=== PATIENT | male | born 1955 | race Caucasian/White ===

== ENCOUNTER 2018-11-20 12:15 | Outpatient (REF) | payer BC, SELFPAY ==
[2018-11-20 19:27] LABS: CREATININE 0.89 mg/dL (0.70-1.30); Cholesterol 177 mg/dL (50-200); HDL Cholesterol 57 mg/dL (40-60); LDL CHOLESTEROL 102 mg/dL (<100); Triglyceride 82 mg/dL (30-150)
== END 2018-11-20 12:35 ==
LOC: NCHCN 12:15
PROVIDERS: PCP Internal Medicine; Visit Provider Internal Medicine
DX: Z00.00 Encounter for general adult medical examination without abnormal findings (principal); Z13.220 Encounter for screening for lipoid disorders
CPT/HCPCS: 80061; 83721; 82565

== ENCOUNTER 2020-04-17 11:08 | Outpatient (REF) | payer BC, SELFPAY ==
[2020-04-17 19:31] LABS: ALT 38 U/L (16-63); Anion Gap 8.7 mmol/L (3-11); BUN 14 mg/dL (7-18); CO2 25.3 mmol/L (21.0-32.0); CREATININE 0.73 mg/dL (0.70-1.30); Calcium 8.7 mg/dL (8.5-10.1); Calculated LDL 86 mg/dL (<100); Chloride 105 mmol/L (98-107); Cholesterol 161 mg/dL (<200); Glucose 86 mg/dL (74-106); HDL Cholesterol 59 mg/dL (40-60); Sodium 139 mmol/L (136-145); Triglyceride 84 mg/dL (<150)
[2020-04-17 20:09] LABS: Creatine Kinase 305 U/L (39-308)
== END 2020-04-17 11:28 ==
LOC: NCHCN 11:08
PROVIDERS: PCP Internal Medicine; Visit Provider Internal Medicine
DX: E78.5 Hyperlipidemia, unspecified (principal)
CPT/HCPCS: 80048; 80061; 82550; 84460

== ENCOUNTER 2021-04-23 14:04 | Outpatient (REF) | payer BC, SELFPAY ==
[2021-04-23 19:05] LABS: ALT 63 U/L (16-63); Anion Gap 8.1 mmol/L (3-11); BUN 18 mg/dL (7-18); CO2 26.9 mmol/L (21.0-32.0); CREATININE 0.8 mg/dL (0.70-1.30); Calculated LDL 93 mg/dL (<100); Chloride 104 mmol/L (98-107); Cholesterol 169 mg/dL (<200); Glucose 85 mg/dL (74-106); HDL Cholesterol 58 mg/dL (40-60); Sodium 139 mmol/L (136-145); Triglyceride 91 mg/dL (<150)
[2021-04-23 19:25] LABS: Creatine Kinase 221 U/L (39-308)
== END 2021-04-23 14:05 | disposition home or self-care (01) ==
LOC: NCHCN 14:04
PROVIDERS: PCP Internal Medicine; Visit Provider Internal Medicine
DX: R03.0 Elevated blood-pressure reading, without diagnosis of hypertension (principal); E66.9 Obesity, unspecified; Z00.00 Encounter for general adult medical examination without abnormal findings
CPT/HCPCS: 80048; 80061; 82550; 84460

== ENCOUNTER 2022-05-06 19:08 | Outpatient (REF) | payer MEDICARE, SELFPAY ==
[2022-05-06 19:56] LABS: ALT 39 U/L (16-63); BUN 12 mg/dL (7-18); CREATININE 0.9 mg/dL (0.70-1.30); Chloride 104 mmol/L (98-107); Creatine Kinase 249 U/L (39-308); Estimated GFR 94.78 (mL/min/1.73m2); Glucose 89 mg/dL (74-106); Potassium 3.9 mmol/L (3.5-5.1); Sodium 140 mmol/L (136-145)
== END 2022-05-06 19:09 | disposition home or self-care (01) ==
LOC: NCHCN 19:08
PROVIDERS: PCP Internal Medicine; Visit Provider Internal Medicine
DX: E78.5 Hyperlipidemia, unspecified (principal)
CPT/HCPCS: 80048; 82550; 84460

== ENCOUNTER 2023-01-11 12:31 | Outpatient (REF) | payer MEDICARE, SELFPAY ==
[2023-01-11 20:12] LABS: ALT 39 U/L (16-63); Anion Gap 10.4 mmol/L (3-11); BUN 17 mg/dL (7-18); CO2 25.6 mmol/L (21.0-32.0); Calcium 9.1 mg/dL (8.5-10.1); Calculated LDL 66 mg/dL (<100); Chloride 105 mmol/L (98-107); Cholesterol 136 mg/dL (<200); Estimated GFR 83.01 (mL/min/1.73m2); Glucose 92 mg/dL (74-106); HDL Cholesterol 57 mg/dL (40-60); Potassium 4.2 mmol/L (3.5-5.1); Sodium 141 mmol/L (136-145); Triglyceride 68 mg/dL (<150)
[2023-01-11 20:33] LABS: Creatine Kinase 166 U/L (39-308)
[2023-01-13 10:22] LABS: Lyme Ab w Rflx to Lyme Confirm Negative (Negative)
== END 2023-01-11 12:32 | disposition home or self-care (01) ==
LOC: NCHCN 12:31
PROVIDERS: PCP Internal Medicine; Visit Provider Internal Medicine
DX: I10 Essential (primary) hypertension (principal); E78.5 Hyperlipidemia, unspecified
CPT/HCPCS: 80048; 80061; 82550; 84460; 86618

== ENCOUNTER 2023-01-14 15:37 | Outpatient (REF) | payer MEDICARE, SELFPAY ==
[2023-01-14 19:25] LABS: ESR 24 mm/hr (0-20); HCT 44.3 % (40.0-50.0); HGB 14.8 g/dL (13.5-17.5); MCH 29.1 pg (27.0-33.0); MCHC 33.4 % (32.0-36.0); MCV 87 fL (80-95); MPV 11.2 fL (8.0-11.0); Platelet Count 230 10^3/uL (130-400); RBC 5.08 10^6/uL (4.36-5.78); RDW 12.6 % (11.8-14.1); RDW-SD 40.6 fL; WBC 7.49 10^3/uL (4.4-10.8)
[2023-01-14 19:47] LABS: TSH 1.57 uIU/mL (0.36-3.74); Vitamin B12 521 pg/mL (193-986)
[2023-01-15 21:54] LABS: CRP, High Sensitivity 4.35 mg/L (See Note); Rheumatoid Factor <8.6 IU/mL (<12.0)
== END 2023-01-14 15:38 | disposition home or self-care (01) ==
LOC: NCHCN 15:37
PROVIDERS: PCP Internal Medicine; Visit Provider Internal Medicine
DX: G60.9 Hereditary and idiopathic neuropathy, unspecified (principal); M12.831 Other specific arthropathies, not elsewhere classified, right wrist
CPT/HCPCS: 85027; 85652; 86141; 82607; 84443; 86431

== ENCOUNTER 2024-04-12 13:26 | Outpatient (REF) | payer MEDICARE, SELFPAY ==
[2024-04-12 19:50] LABS: ALT 37 U/L (16-63); Anion Gap 7.7 mmol/L (3-11); BUN 12 mg/dL (7-18); CO2 26.3 mmol/L (21.0-32.0); CREATININE 0.9 mg/dL (0.70-1.30); Calcium 9.2 mg/dL (8.5-10.1); Calculated LDL 61 mg/dL (<100); Chloride 104 mmol/L (98-107); Cholesterol 148 mg/dL (<200); Estimated GFR 93.61 (mL/min/1.73m2); Glucose 89 mg/dL (74-106); HDL Cholesterol 71 mg/dL (40-60); Potassium 3.9 mmol/L (3.5-5.1); Sodium 138 mmol/L (136-145); Triglyceride 82 mg/dL (<150)
[2024-04-12 20:32] LABS: Creatine Kinase 272 U/L (39-308)
== END 2024-04-12 13:27 | disposition home or self-care (01) ==
LOC: NCHCN 13:26
PROVIDERS: PCP Internal Medicine; Visit Provider Internal Medicine
DX: Z00.00 Encounter for general adult medical examination without abnormal findings (principal)
CPT/HCPCS: 80048; 80061; 82550; 84460

== ENCOUNTER 2024-12-24 14:35 | Outpatient (REF) | payer MEDICARE, SELFPAY ==
[2024-12-24 18:51] LABS: HGB 15.4 g/dL (13.5-17.5); MCH 30.4 pg (27.0-33.0); MCHC 34.2 % (32.0-36.0); MCV 89 fL (80-95); MPV 10.8 fL (8.0-11.0); Platelet Count 224 10^3/uL (130-400); RBC 5.07 10^6/uL (4.36-5.78); RDW 12.7 % (11.8-14.1); RDW-SD 41.3 fL; WBC 7.33 10^3/uL (4.4-10.8)
[2024-12-24 19:01] LABS: Uric Acid 6.4 mg/dL (3.5-7.2)
[2024-12-24 19:20] LABS: C-Reactive Protein < 0.50 mg/dL (<or=0.5)
== END 2024-12-24 14:36 | disposition home or self-care (01) ==
LOC: NCHCN 14:35
PROVIDERS: PCP Internal Medicine; Visit Provider Internal Medicine
DX: L03.031 Cellulitis of right toe (principal)
CPT/HCPCS: 85027; 84550; 86140

== ENCOUNTER 2025-04-16 17:30 | Outpatient (REF) | payer MEDICARE, SELFPAY ==
[2025-04-16 19:26] LABS: ALT 34 U/L (16-63); AST 23 U/L (15-37); Albumin 4.0 g/dL (3.4-5.0); Alkaline Phosphatase 103 U/L (46-116); Anion Gap 8.5 mmol/L (3-11); BUN 12 mg/dL (7-18); Bilirubin, Total 1.0 mg/dL (0.2-1.0); CO2 26.5 mmol/L (21.0-32.0); Calcium 8.7 mg/dL (8.5-10.1); Chloride 105 mmol/L (98-107); Cholesterol 164 mg/dL (<200); Estimated GFR 93.03 (mL/min/1.73m2); Glucose 90 mg/dL (74-106); Potassium 4.0 mmol/L (3.5-5.1); Sodium 140 mmol/L (136-145); Total Protein 7.4 g/dL (6.4-8.2); Triglyceride 72 mg/dL (<150)
[2025-04-17 05:04] LABS: Calculated LDL 85 mg/dL (<100); HDL Cholesterol 65 mg/dL (>or=40)
== END 2025-04-16 17:31 | disposition home or self-care (01) ==
LOC: NCHCN 17:30
PROVIDERS: PCP Internal Medicine; Visit Provider Nurse Practitioner Family
DX: E78.5 Hyperlipidemia, unspecified (principal)
CPT/HCPCS: 80053; 80061